=== PATIENT | male | born 1935 | race Caucasian/White ===

== ENCOUNTER 2023-11-02 11:58 | Day surgery (SDC) | payer MEDICARE ==
[2023-11-02] MEDS ORDERED: LIDOCAINE HCL 2% 100 MG/5 ML IJ ONE (11:59)
[2023-11-02] MEDS ORDERED: Decadron 4 MG INJ IV ONE (11:59)
[2023-11-02] MEDS ORDERED: Lactated Ringers 1,000 ML IV ONE (14:05)
[2023-11-02] MEDS ORDERED: DIPRIVAN 200 MG/20 ML IV ONE (14:14)
--- NOTE | 2023-11-02 15:06 | XRAY ---
Indication: Right C2-C4 MBB Intraoperative fluoroscopy provided for 24 seconds. 5 digital spot image submitted for interpretation demonstrates posterior needle tips projecting over expected right C2-C4 nerve roots. Correlate with intraoperative findings/report.
--- NOTE | 2023-11-02 15:20 | XRAY ---
24 seconds of fluoroscopy was used in surgery for a right C2-C4 MBB.
== END 2023-11-02 14:47 | disposition home or self-care (01) ==
LOC: SDC-PAIN 11:58
PROVIDERS: ATTEND Psychiatry & Neurology Pain Medicine
DX: M47.812 Spondylosis without myelopathy or radiculopathy, cervical region (principal)
CPT/HCPCS: 64490; 64491; 72040; 77002; J1100; J2704

== ENCOUNTER 2024-01-11 11:51 | Day surgery (SDC) | payer MEDICARE ==
[2024-01-11] MEDS ORDERED: BUPIVACAINE 0.5% VIAL IJ ONE (11:52)
[2024-01-11] MEDS ORDERED: Depo-Medrol 40 MG/ML IM ONE (11:52)
[2024-01-11] MEDS ORDERED: Lactated Ringers 1,000 ML IV ONE (13:15)
[2024-01-11] MEDS ORDERED: DIPRIVAN 200 MG/20 ML IV ONE ×2 (13:15)
--- NOTE | 2024-01-11 15:05 | XRAY ---
Indication: Left hip injection. Intraoperative fluoroscopy provided for 8 seconds. Single digital spot image submitted for interpretation demonstrates needle tip projecting lateral to left femur neck. Small amount of contrast injected for needle tip placement. Correlate with intraoperative findings/report.
--- NOTE | 2024-01-11 17:11 | XRAY ---
8 seconds of fluoroscopy was used in surgery for a left intra-articular hip injection.
== END 2024-01-11 13:21 | disposition home or self-care (01) ==
LOC: SDC-PAIN 11:51
PROVIDERS: ATTEND Psychiatry & Neurology Pain Medicine
DX: M16.12 Unilateral primary osteoarthritis, left hip (principal)
CPT/HCPCS: 20610; 73501; 77002; J1010; J2704; Q9966